=== PATIENT | female | born 1945 | race Caucasian/White ===

== ENCOUNTER 2017-12-13 12:36 | Emergency (ER) | payer MEDICARE, OTHER ==
[~2017-12-13] VITALS: Ht 160 cm; Wt 62.0 kg
[2017-12-13] MEDS ORDERED: dexamethasone sod phosphate 10mg/ml inj IV STA (12:41)
[2017-12-13] MEDS ORDERED: ipratropium/albuterol 3ml nebule NEB ONE (12:45)
[2017-12-13 13:06] LABS: BASOPHILS % (AUTO) 0.2 % (0-1); EOSINOPHILS # (AUTO) 0.2 X10'3 (0-0.9); EOSINOPHILS % (AUTO) 1.7 % (0-6); HEMATOCRIT 36.8 % (35.0-45.0); HEMOGLOBIN 12.6 g/dl (12.0-16.0); LYMPHOCYTES # (AUTO) 4.5 X10'3 (1.1-4.8); LYMPHOCYTES % (AUTO) 51.9 % (21-51); MEAN CORPUSCULAR HEMOGLOBIN 27.6 PG (27.0-31.0); MEAN CORPUSCULAR HGB CONC 34.1 % (33.0-36.5); MEAN CORPUSCULAR VOLUME 80.9 FL (78-98); MEAN PLATELET VOLUME 7.2 FL (7.4-10.4); MONOCYTES # (AUTO) 0.7 X10'3 (0-0.9); MONOCYTES % (AUTO) 7.7 % (2-12); NEUTROPHILS # (AUTO) 3.4 X10'3 (1.8-7.7); NEUTROPHILS % (AUTO) 38.5 % (42-75); PLATELET COUNT 236 X10'3 (140-440); RED BLOOD COUNT 4.55 X10'6 (4.20-5.60); RED CELL DISTRIBUTION WIDTH 16.2 % (11.5-14.5); WHITE BLOOD COUNT 8.7 X10'3 (4.5-11.0)
[2017-12-13 13:15] LABS: PARTIAL THROMBOPLASTIN TIME 26 SECONDS (22-32); PROTHROMBIN TIME 10.6 SECONDS (9.0-12.0)
[2017-12-13] MEDS ORDERED: LORazepam 2 mg/ml vial IV ONE (13:15)
[2017-12-13] MEDS ORDERED: LORazepam 2 mg/ml vial IV PRN (13:20)
[2017-12-13] MEDS ORDERED: LORazepam 2 mg/ml vial ONE (13:26)
[2017-12-13] MEDS ORDERED: LEVO750T21 PO (13:32)
[2017-12-13] MEDS ORDERED: SPIR25TA3 PO (13:32)
[2017-12-13] MEDS ORDERED: GABA-532 PO (13:32)
[2017-12-13] MEDS ORDERED: GEMF600T3 PO (13:32)
[2017-12-13] MEDS ORDERED: LEVO50TA PO (13:32)
[2017-12-13] MEDS ORDERED: ALBU8.5H8 IH (13:32)
[2017-12-13] MEDS ORDERED: CITA20TA11 PO (13:32)
[2017-12-13] MEDS ORDERED: AMLO-93 PO (13:32)
[2017-12-13] MEDS ORDERED: METO1TAB25 OP (13:39)
[2017-12-13] MEDS ORDERED: PRED5TAB PO (13:47)
[2017-12-13] MEDS ORDERED: DOXY100C43 PO (13:47)
[2017-12-13] MEDS ORDERED: ALBU8HFA PO (13:47)
[2017-12-13 13:55] LABS: ALANINE AMINOTRANSFERASE 19 U/L (12-78); ALBUMIN 3.9 G/DL (3.4-5.0); ALBUMIN/GLOBULIN RATIO 0.9 (1.1-1.5); ALKALINE PHOSPHATASE 108 IU/L (46-116); ANION GAP 16 (8-16); ASPARTATE AMINO TRANSFERASE 22 U/L (10-37); BILIRUBIN,TOTAL 0.3 MG/DL (0.1-1.0); BLOOD UREA NITROGEN 33 MG/DL (7-18); BUN/CREATININE RATIO 19.6 (6.6-38.0); CALCIUM 9.6 MG/DL (8.5-10.1); CHLORIDE 102 MMOL/L (99-107); CREATININE 1.68 MG/DL (0.40-0.90); GLUCOSE 83 MG/DL (70-104); POTASSIUM 4.4 MMOL/L (3.5-5.1); SODIUM 137 MMOL/L (135-145); TOTAL PROTEIN 8.3 G/DL (6.4-8.2); eGFR 30 ML/MIN
[2017-12-13 14:14] VITALS: BP 124/87
== END 2017-12-13 14:16 | disposition home or self-care (01) ==
LOC: ER 12:36
DX: R06.03 Acute respiratory distress (principal); E85.9 Amyloidosis, unspecified; J20.9 Acute bronchitis, unspecified; I25.10 Atherosclerotic heart disease of native coronary artery without angina pectoris; E78.00 Pure hypercholesterolemia, unspecified; Z79.899 Other long term (current) drug therapy; Z88.8 Allergy status to other drugs, medicaments and biological substances
CPT/HCPCS: 36415; 71045; 80053; 83605; 83880; 84145; 84484; 85025; 85610; 85730; 87040; 87502; 87503; 93005; 94640; 94760; 96374; 96375; 99291; J1100; J2060

== ENCOUNTER 2017-12-23 09:05 | Emergency (ER) | payer MEDICARE, OTHER ==
[~2017-12-23] VITALS: Ht 160 cm; Wt 60.0 kg
[~2017-12-23 09:05] MED LIST: ALBU8.5H8 IH; ALBU8HFA PO; AMLO-93 PO; CITA20TA11 PO; GABA-532 PO; GEMF600T3 PO; LEVO50TA PO; LEVO750T21 PO; METO1TAB25 OP; PRED5TAB PO; SPIR25TA3 PO
[2017-12-23] MEDS ORDERED: normal saline 1000ML IV soln IV ONE (09:10)
[2017-12-23] MEDS ORDERED: normal saline 1000ML IV soln IVB ONE ×2 (09:30→10:30)
[2017-12-23] MEDS ORDERED: CefTRIAXone 2gm/D5W 50ml 50 ML IV ONE (09:30)
[2017-12-23] MEDS ORDERED: ondansetron/PF 4mg/2ml inj IV ONE (09:35)
[2017-12-23] MEDS ORDERED: morphine 4 MG/ML inj SYRINge IV ONE (09:35)
[2017-12-23 09:59] LABS: BASOPHILS % (AUTO) 0.3 % (0-1); EOSINOPHILS # (AUTO) 0.2 X10'3 (0-0.9); EOSINOPHILS % (AUTO) 1.4 % (0-6); HEMATOCRIT 37.7 % (35.0-45.0); HEMOGLOBIN 12.9 g/dl (12.0-16.0); LYMPHOCYTES # (AUTO) 3.7 X10'3 (1.1-4.8); LYMPHOCYTES % (AUTO) 22.3 % (21-51); MEAN CORPUSCULAR HEMOGLOBIN 27.7 PG (27.0-31.0); MEAN CORPUSCULAR HGB CONC 34.2 % (33.0-36.5); MEAN CORPUSCULAR VOLUME 80.9 FL (78-98); MEAN PLATELET VOLUME 6.7 FL (7.4-10.4); MONOCYTES % (AUTO) 5.8 % (2-12); NEUTROPHILS # (AUTO) 11.5 X10'3 (1.8-7.7); NEUTROPHILS % (AUTO) 70.2 % (42-75); PLATELET COUNT 271 X10'3 (140-440); RED BLOOD COUNT 4.66 X10'6 (4.20-5.60); RED CELL DISTRIBUTION WIDTH 15.7 % (11.5-14.5); WHITE BLOOD COUNT 16.4 X10'3 (4.5-11.0)
[2017-12-23 10:08] LABS: PROTHROMBIN TIME 10.3 SECONDS (9.0-12.0)
[2017-12-23 10:12] LABS: ALANINE AMINOTRANSFERASE 17 U/L (12-78); ALBUMIN 3.8 G/DL (3.4-5.0); ALBUMIN/GLOBULIN RATIO 0.9 (1.1-1.5); ALKALINE PHOSPHATASE 111 IU/L (46-116); ANION GAP 14 (8-16); ASPARTATE AMINO TRANSFERASE 13 U/L (10-37); BILIRUBIN,TOTAL 0.4 MG/DL (0.1-1.0); BLOOD UREA NITROGEN 46 MG/DL (7-18); BUN/CREATININE RATIO 29.5 (6.6-38.0); CHLORIDE 103 MMOL/L (99-107); CREATININE 1.56 MG/DL (0.40-0.90); GLUCOSE 99 MG/DL (70-104); MAGNESIUM 1.9 MG/DL (1.5-2.4); POTASSIUM 4.6 MMOL/L (3.5-5.1); SODIUM 139 MMOL/L (135-145); TOTAL CARBON DIOXIDE 22.3 MMOL/L (24-32); TOTAL PROTEIN 8.1 G/DL (6.4-8.2); eGFR 33 ML/MIN
[2017-12-23 10:33] LABS: CLARITY,URINE CLOUDY (Clear); COLOR,URINE YELLOW (Yellow); GLUCOSE, URINE NEGATIVE (Neg); KETONES,URINE NEGATIVE (Neg); LEUKOCYTE ESTERASE ,URINE LARGE (Neg); NITRITES, URINE POSITIVE (Neg); OCCULT BLOOD,URINE MODERATE (Neg); PH,URINE 5.5 (4.8-8.0); PROTEIN,URINE TRACE mg/dl (Neg); UROBILINOGEN,URINE 0.2 E.U/dL (0.2-1.0)
[2017-12-23 10:40] LABS: UA COLLECTION TYPE CLN CATCH MIDSTREAM
[2017-12-23 10:42] LABS: BACTERIA,URINE 3+ /HPF (Neg); MUCUS STRANDS NONE SEEN /LPF (Neg); RBC,URINE 0-2 /HPF (0-2); SQUAMOUS EPITHELIAL CELL,UR NONE SEEN /LPF (FEW); TRANSITIONAL EPI CELLS,URINE FEW /HPF; WBC,URINE 50-100 /HPF (0-4)
[2017-12-23] MEDS ORDERED: ONDA4TAB12 PO (11:07)
[2017-12-23] MEDS ORDERED: CEPH500C5 PO (11:07)
[2017-12-23 14:48] VITALS: BP 129/76
== END 2017-12-23 14:40 | disposition home or self-care (01) ==
LOC: ER 09:05
DX: N39.0 Urinary tract infection, site not specified (principal); I25.10 Atherosclerotic heart disease of native coronary artery without angina pectoris; E78.00 Pure hypercholesterolemia, unspecified; N18.9 Chronic kidney disease, unspecified; M10.9 Gout, unspecified; Z88.8 Allergy status to other drugs, medicaments and biological substances; Z79.899 Other long term (current) drug therapy
CPT/HCPCS: 36415; 80053; 81001; 83605; 83735; 84145; 85025; 85610; 87040; 87077; 87088; 87186; 96365; 96375; 99284; J0696; J2270; J2405; J7030

== ENCOUNTER 2018-08-05 10:37 | Inpatient (IN) | payer MEDICARE, OTHER ==
[~2018-08-05] VITALS: Ht 160 cm; Wt 65.2 kg
[~2018-08-05 10:37] MED LIST changes: -ALBU8HFA PO; -AMLO-93 PO; +AMLO2.5T2 PO; +CEFU500T66 PO; +CITA-278 PO; -CITA20TA11 PO; +FURO-150 PO; -GEMF600T3 PO; +GEMF600T4 PO; +IPRA3AMP9 NEB; +LACT1CAP26 PO; -LEVO750T21 PO; +METH4TAB81 PO; -METO1TAB25 OP; +OMEP40CA37 PO; -SPIR25TA3 PO
[2018-08-05] MEDS ORDERED: levoFLOXACIN 750MG TABLET PO ONE (11:15)
[2018-08-05] MEDS ORDERED: amox tr/potassium clavulanate 875/125mg TAB PO ONE (11:15)
[2018-08-05 11:19] LABS: BASOPHILS % (AUTO) 0.1 % (0-1); EOSINOPHILS % (AUTO) 0 % (0-6); HEMATOCRIT 37.6 % (35.0-45.0); LYMPHOCYTES # (AUTO) 1.5 X10'3 (1.1-4.8); LYMPHOCYTES % (AUTO) 9.3 % (21-51); MEAN CORPUSCULAR HEMOGLOBIN 24.9 PG (27.0-31.0); MEAN CORPUSCULAR HGB CONC 31.9 % (33.0-36.5); MEAN PLATELET VOLUME 7.1 FL (7.4-10.4); MONOCYTES # (AUTO) 0.4 X10'3 (0-0.9); MONOCYTES % (AUTO) 2.7 % (2-12); NEUTROPHILS # (AUTO) 13.9 X10'3 (1.8-7.7); NEUTROPHILS % (AUTO) 87.9 % (42-75); PLATELET COUNT 334 X10'3 (140-440); RED BLOOD COUNT 4.82 X10'6 (4.20-5.60); RED CELL DISTRIBUTION WIDTH 18.8 % (11.5-14.5); WHITE BLOOD COUNT 15.8 X10'3 (4.5-11.0)
[2018-08-05 11:32] LABS: ALANINE AMINOTRANSFERASE 18 U/L (12-78); ALBUMIN 3.8 G/DL (3.4-5.0); ALBUMIN/GLOBULIN RATIO 0.9 (1.1-1.5); ALKALINE PHOSPHATASE 115 IU/L (46-116); ANION GAP 11 (8-16); ASPARTATE AMINO TRANSFERASE 15 U/L (10-37); BILIRUBIN,TOTAL 0.3 MG/DL (0.1-1.0); BLOOD UREA NITROGEN 30 MG/DL (7-18); BUN/CREATININE RATIO 18.6 (6.6-38.0); CHLORIDE 100 MMOL/L (99-107); CREATININE 1.61 MG/DL (0.40-0.90); GLUCOSE 123 MG/DL (70-104); POTASSIUM 4.4 MMOL/L (3.5-5.1); SODIUM 137 MMOL/L (135-145); TOTAL CARBON DIOXIDE 25.7 MMOL/L (24-32); TOTAL PROTEIN 7.9 G/DL (6.4-8.2); eGFR 32 ML/MIN
[2018-08-05] MEDS ORDERED: piperacillin/tazo 3.375gm/50ml 50 ML IV STA (12:06)
[2018-08-05] MEDS ORDERED: normal saline 1000ML IV soln IVB ONE (12:10)
[2018-08-05] MEDS ORDERED: acetaminophen 325mg tablet PO PRN (13:20)
[2018-08-05] MEDS ORDERED: magnesium Cl slow-release 64mg tablet PO PRN (13:20)
[2018-08-05] MEDS ORDERED: morphine 2 MG/ML inj. syringe IV PRN (13:20)
[2018-08-05] MEDS ORDERED: magnesium 4gm in 100ml NS 100 ML IV PRN (13:20)
[2018-08-05] MEDS ORDERED: HYDROcodone/acetaminophen 5mg/325mg tablet PO PRN (13:20)
[2018-08-05] MEDS ORDERED: potassium Cl 40MEQ/NS 500ml 500 ML IV PRN ×2 (13:20)
[2018-08-05] MEDS ORDERED: ondansetron/PF 4mg/2ml inj IV PRN (13:20)
[2018-08-05] MEDS ORDERED: magnesium 1gm/100ml D5W IVPB 100 ML IV PRN (13:20)
[2018-08-05] MEDS ORDERED: potassium Cl 20 mEq SR tablet PO PRN ×2 (13:20)
[2018-08-05] MEDS: normal saline 1000ml 1,000 ML IV SCH (13:53)
[2018-08-05 17:52] VITALS: BP 127/43
[2018-08-05 18:00] VITALS: BP 124/50
[2018-08-05] MEDS: acetaminophen 325mg tablet PO PRN (19:23)
[2018-08-05] MEDS: heparin, porcine 5000 units/ml vial SQ SCH (19:24)
[2018-08-05] MEDS ORDERED: DILT120C51 PO (20:32)
[2018-08-05] MEDS ORDERED: EPLE25TA4 PO (20:32)
[2018-08-05] MEDS ORDERED: temazepam 15mg capsule PO PRN (21:00)
[2018-08-05 23:30] VITALS: BP 132/52
[2018-08-06] MEDS: normal saline 1000ml 1,000 ML IV SCH ×2 (01:37→16:26)
[2018-08-06 05:15] LABS: BASOPHILS % (AUTO) 0.1 % (0-1); EOSINOPHILS # (AUTO) 0.3 X10'3 (0-0.9); EOSINOPHILS % (AUTO) 2.9 % (0-6); HEMOGLOBIN 10.8 g/dl (12.0-16.0); LYMPHOCYTES # (AUTO) 1.9 X10'3 (1.1-4.8); MEAN CORPUSCULAR HGB CONC 31.7 % (33.0-36.5); MEAN PLATELET VOLUME 7.4 FL (7.4-10.4); MONOCYTES # (AUTO) 0.5 X10'3 (0-0.9); MONOCYTES % (AUTO) 5.1 % (2-12); NEUTROPHILS # (AUTO) 7.2 X10'3 (1.8-7.7); NEUTROPHILS % (AUTO) 72.9 % (42-75); PLATELET COUNT 292 X10'3 (140-440); RED BLOOD COUNT 4.31 X10'6 (4.20-5.60); RED CELL DISTRIBUTION WIDTH 18.1 % (11.5-14.5); WHITE BLOOD COUNT 9.9 X10'3 (4.5-11.0)
[2018-08-06 06:25] LABS: ALANINE AMINOTRANSFERASE 18 U/L (12-78); ALBUMIN 3.2 G/DL (3.4-5.0); ALBUMIN/GLOBULIN RATIO 0.8 (1.1-1.5); ALKALINE PHOSPHATASE 96 IU/L (46-116); ANION GAP 12 (8-16); ASPARTATE AMINO TRANSFERASE 14 U/L (10-37); BILIRUBIN,TOTAL 0.2 MG/DL (0.1-1.0); BLOOD UREA NITROGEN 28 MG/DL (7-18); BUN/CREATININE RATIO 17.8 (6.6-38.0); CALCIUM 9.5 MG/DL (8.5-10.1); CHLORIDE 108 MMOL/L (99-107); CREATININE 1.57 MG/DL (0.40-0.90); GLUCOSE 101 MG/DL (70-104); MAGNESIUM 1.9 MG/DL (1.5-2.4); POTASSIUM 4.3 MMOL/L (3.5-5.1); SODIUM 145 MMOL/L (135-145); TOTAL CARBON DIOXIDE 25.5 MMOL/L (24-32); eGFR 32 ML/MIN
[2018-08-06 07:00] VITALS: BP 152/56
[2018-08-06] MEDS: heparin, porcine 5000 units/ml vial SQ SCH ×2 (08:00→19:39)
[2018-08-06] MEDS: K and/or MAG REPLACEMENT MC SCH (08:00)
[2018-08-06] MEDS: CefTRIAXone 2gm/D5W 50ml 50 ML IV SCH (08:20)
[2018-08-06] MEDS: pantoprazole 40mg Tablet.DR PO SCH (08:20)
[2018-08-06] MEDS ORDERED: levoFLOXACIN-Levaquin 500mg/D5 100 ML IV SCH (08:30)
[2018-08-06] MEDS: levoTHYROXINE 25mcg tablet PO SCH (12:00)
[2018-08-06] MEDS: CITALOpram 10mg tablet PO SCH (12:00)
[2018-08-06] MEDS: diltiazem CD 120mg capsule (once-daily) PO SCH (12:00)
[2018-08-06 19:00] VITALS: BP 145/60
[2018-08-06] MEDS: gemfibrozil 600mg tablet PO SCH (19:38)
[2018-08-06] MEDS: gabapentin 300mg capsule PO SCH (19:38)
[2018-08-07] VITALS: BP 136/73
[2018-08-07] MEDS: acetaminophen 325mg tablet PO PRN (03:50)
[2018-08-07] MEDS: normal saline 1000ml 1,000 ML IV SCH (05:53)
[2018-08-07 06:20] LABS: BASOPHILS % (AUTO) 0.4 % (0-1); EOSINOPHILS # (AUTO) 0.2 X10'3 (0-0.9); EOSINOPHILS % (AUTO) 3.8 % (0-6); HEMATOCRIT 30.4 % (35.0-45.0); HEMOGLOBIN 9.9 g/dl (12.0-16.0); LYMPHOCYTES # (AUTO) 1.7 X10'3 (1.1-4.8); LYMPHOCYTES % (AUTO) 27.8 % (21-51); MEAN CORPUSCULAR HEMOGLOBIN 25.5 PG (27.0-31.0); MEAN CORPUSCULAR HGB CONC 32.6 % (33.0-36.5); MEAN CORPUSCULAR VOLUME 78.5 FL (78-98); MEAN PLATELET VOLUME 7.2 FL (7.4-10.4); MONOCYTES # (AUTO) 0.4 X10'3 (0-0.9); MONOCYTES % (AUTO) 6.7 % (2-12); NEUTROPHILS # (AUTO) 3.7 X10'3 (1.8-7.7); NEUTROPHILS % (AUTO) 61.3 % (42-75); PLATELET COUNT 249 X10'3 (140-440); RED BLOOD COUNT 3.87 X10'6 (4.20-5.60); RED CELL DISTRIBUTION WIDTH 18.8 % (11.5-14.5); WHITE BLOOD COUNT 6.1 X10'3 (4.5-11.0)
[2018-08-07 06:40] LABS: ALANINE AMINOTRANSFERASE 16 U/L (12-78); ALBUMIN/GLOBULIN RATIO 0.9 (1.1-1.5); ALKALINE PHOSPHATASE 74 IU/L (46-116); ANION GAP 11 (8-16); ASPARTATE AMINO TRANSFERASE 12 U/L (10-37); BILIRUBIN,TOTAL 0.2 MG/DL (0.1-1.0); BLOOD UREA NITROGEN 23 MG/DL (7-18); BUN/CREATININE RATIO 15.1 (6.6-38.0); CALCIUM 9.4 MG/DL (8.5-10.1); CHLORIDE 109 MMOL/L (99-107); CREATININE 1.52 MG/DL (0.40-0.90); GLUCOSE 101 MG/DL (70-104); MAGNESIUM 1.8 MG/DL (1.5-2.4); POTASSIUM 4.1 MMOL/L (3.5-5.1); SODIUM 144 MMOL/L (135-145); TOTAL CARBON DIOXIDE 24.4 MMOL/L (24-32); TOTAL PROTEIN 6.5 G/DL (6.4-8.2); eGFR 34 ML/MIN
[2018-08-07 07:51] VITALS: BP 129/63
[2018-08-07] MEDS: K and/or MAG REPLACEMENT MC SCH (08:00)
[2018-08-07] MEDS ORDERED: furosemide 20MG tablet PO SCH (08:00)
[2018-08-07] MEDS: pantoprazole 40mg Tablet.DR PO SCH (09:03)
[2018-08-07] MEDS: levoTHYROXINE 25mcg tablet PO SCH (09:04)
[2018-08-07] MEDS: diltiazem CD 120mg capsule (once-daily) PO SCH (09:04)
[2018-08-07] MEDS: gabapentin 300mg capsule PO SCH (09:05)
[2018-08-07] MEDS: CefTRIAXone 2gm/D5W 50ml 50 ML IV SCH (09:07)
[2018-08-07] MEDS: heparin, porcine 5000 units/ml vial SQ SCH (09:07)
[2018-08-07] MEDS: CITALOpram 10mg tablet PO SCH (09:33)
[2018-08-07] MEDS: gemfibrozil 600mg tablet PO SCH (09:33)
[2018-08-07] MEDS ORDERED: ESOM40CA30 PO (12:05)
[2018-08-07] MEDS ORDERED: LEVO500T89 PO (12:05)
[2018-08-07 12:35] VITALS: BP 138/73
[2018-08-07] MEDS ORDERED: lactobacillus rhamnosus 10,000 MMU CELLS/CAPSULE PO SCH (20:00)
== END 2018-08-07 14:30 | disposition home or self-care (01) | DRG 178 ==
LOC: ER 10:38 → ED HOLD 13:16 → SUR 3N 17:25
PROVIDERS: ADMIT Internal Medicine; ATTEND Family Medicine
DX: J69.0 Pneumonitis due to inhalation of food and vomit (principal); I50.30 Unspecified diastolic (congestive) heart failure; E85.9 Amyloidosis, unspecified; K21.9 Gastro-esophageal reflux disease without esophagitis; N18.3 Chronic kidney disease, stage 3 (moderate); D64.9 Anemia, unspecified; E03.9 Hypothyroidism, unspecified; E78.00 Pure hypercholesterolemia, unspecified; I25.10 Atherosclerotic heart disease of native coronary artery without angina pectoris; K44.9 Diaphragmatic hernia without obstruction or gangrene; F32.9 Major depressive disorder, single episode, unspecified; F41.9 Anxiety disorder, unspecified; M10.9 Gout, unspecified; R91.1 Solitary pulmonary nodule; M54.2 Cervicalgia; M54.9 Dorsalgia, unspecified; Z79.890 Hormone replacement therapy; Z90.5 Acquired absence of kidney; Z79.899 Other long term (current) drug therapy; Z88.8 Allergy status to other drugs, medicaments and biological substances; Z91.041 Radiographic dye allergy status; Z85.528 Personal history of other malignant neoplasm of kidney; Z85.858 Personal history of malignant neoplasm of other endocrine glands
CPT/HCPCS: 36415; 71046; 80053; 83605; 83735; 84145; 85025; 87040; 87070; G0378; J0696; J1644; J1956; J2405; J2543; J7030

== ENCOUNTER 2019-03-25 22:31 | Emergency (ER) | payer MEDICARE, OTHER ==
[~2019-03-25] VITALS: Ht 160 cm; Wt 62.0 kg
[~2019-03-25 22:31] MED LIST changes: +ACET-75 PO; -AMLO2.5T2 PO; -CEFU500T66 PO; -CITA-278 PO; +CITA-311 PO; +DILT120C51 PO; +EPLE25TA4 PO; -GEMF600T4 PO; +GEMF600T89 PO; -IPRA3AMP9 NEB; -LACT1CAP26 PO; -METH4TAB81 PO; -OMEP40CA37 PO; -PRED5TAB PO
[2019-03-25 23:09] LABS: BASOPHILS % (AUTO) 0.4 % (0-1); EOSINOPHILS # (AUTO) 0.2 X10'3 (0-0.9); EOSINOPHILS % (AUTO) 1.7 % (0-6); HEMATOCRIT 36.7 % (35.0-45.0); HEMOGLOBIN 12.3 g/dl (12.0-16.0); LYMPHOCYTES # (AUTO) 4.1 X10'3 (1.1-4.8); LYMPHOCYTES % (AUTO) 40.6 % (21-51); MEAN CORPUSCULAR HEMOGLOBIN 28.8 PG (27.0-31.0); MEAN CORPUSCULAR HGB CONC 33.5 g/dL (33.0-36.5); MEAN CORPUSCULAR VOLUME 85.8 FL (78-98); MEAN PLATELET VOLUME 7.5 FL (7.4-10.4); MONOCYTES # (AUTO) 0.7 X10'3 (0-0.9); MONOCYTES % (AUTO) 7.2 % (2-12); NEUTROPHILS # (AUTO) 5.1 X10'3 (1.8-7.7); NEUTROPHILS % (AUTO) 50.1 % (42-75); PLATELET COUNT 258 X10'3 (140-440); RED BLOOD COUNT 4.28 X10'6 (4.20-5.60); RED CELL DISTRIBUTION WIDTH 15.2 % (11.5-14.5); WHITE BLOOD COUNT 10.1 X10'3 (4.5-11.0)
[2019-03-25 23:18] LABS: ALANINE AMINOTRANSFERASE 20 U/L (12-78); ALBUMIN 3.9 G/DL (3.4-5.0); ALBUMIN/GLOBULIN RATIO 1.1 (1.1-1.5); ALKALINE PHOSPHATASE 102 IU/L (46-116); ANION GAP 10 (8-16); ASPARTATE AMINO TRANSFERASE 9 U/L (10-37); BILIRUBIN,TOTAL 0.3 MG/DL (0.1-1.0); BLOOD UREA NITROGEN 43 MG/DL (7-18); BUN/CREATININE RATIO 26.1 (6.6-38.0); CALCIUM 9.6 MG/DL (8.5-10.1); CHLORIDE 102 MMOL/L (99-107); CREATININE 1.65 MG/DL (0.40-0.90); GLUCOSE 104 MG/DL (70-104); POTASSIUM 4.4 MMOL/L (3.5-5.1); SODIUM 137 MMOL/L (135-145); TOTAL PROTEIN 7.4 G/DL (6.4-8.2); eGFR 31 ML/MIN
[2019-03-25] MEDS ORDERED: nitroGLYCERIN 0.4mg SUBLingual tab SL PRN (23:20)
[2019-03-26 00:27] LABS: CHOL/HDL RATIO 5.6 (0.00-4.99); CHOLESTEROL 211 MG/DL (0-200); HDL CHOLESTEROL 38 MG/DL (35-60); LDL CHOLESTEROL 128 MG/DL (50-100); TRIGLYCERIDES 274 MG/DL (20-135)
[2019-03-26 02:22] VITALS: BP 133/60
== END 2019-03-26 02:32 | disposition home or self-care (01) ==
LOC: ER 22:32
DX: E85.9 Amyloidosis, unspecified (principal); R07.89 Other chest pain; I12.9 Hypertensive chronic kidney disease with stage 1 through stage 4 chronic kidney disease, or unspecified chronic kidney disease; N18.9 Chronic kidney disease, unspecified; E78.5 Hyperlipidemia, unspecified; K80.20 Calculus of gallbladder without cholecystitis without obstruction; I25.10 Atherosclerotic heart disease of native coronary artery without angina pectoris; E78.00 Pure hypercholesterolemia, unspecified; K21.9 Gastro-esophageal reflux disease without esophagitis; E07.9 Disorder of thyroid, unspecified; M10.9 Gout, unspecified; F41.9 Anxiety disorder, unspecified; F32.9 Major depressive disorder, single episode, unspecified; Z98.890 Other specified postprocedural states; Z88.8 Allergy status to other drugs, medicaments and biological substances; Z79.899 Other long term (current) drug therapy
CPT/HCPCS: 36415; 71045; 80053; 80061; 84484; 85025; 93005; 99284

== ENCOUNTER 2019-05-15 17:36 | Emergency (ER) | payer MEDICARE, OTHER ==
[~2019-05-15] VITALS: Ht 160 cm; Wt 63.6 kg
[~2019-05-15 17:36] MED LIST changes: -GEMF600T89 PO
[2019-05-15 17:39] VITALS: BP 143/87
[2019-05-15] MEDS ORDERED: HYDROcodone/acetaminophen 5mg/325mg tablet PO ONE (18:10)
[2019-05-15] MEDS ORDERED: ondansetron 4mg rapidly disintigrating tab PO ONE (18:10)
[2019-05-15] MEDS ORDERED: HYDR-4383 PO (18:14)
== END 2019-05-15 18:30 | disposition home or self-care (01) ==
LOC: ER 17:36
DX: M25.561 Pain in right knee (principal); I25.10 Atherosclerotic heart disease of native coronary artery without angina pectoris; E78.00 Pure hypercholesterolemia, unspecified; K21.9 Gastro-esophageal reflux disease without esophagitis; N18.9 Chronic kidney disease, unspecified; E07.9 Disorder of thyroid, unspecified; M10.9 Gout, unspecified; F41.9 Anxiety disorder, unspecified; F32.9 Major depressive disorder, single episode, unspecified; Z88.8 Allergy status to other drugs, medicaments and biological substances; Z79.899 Other long term (current) drug therapy; Z98.890 Other specified postprocedural states
CPT/HCPCS: 29505; 73564; 99283; J2405

== ENCOUNTER 2019-10-18 15:50 | Emergency (ER) | payer MEDICARE, OTHER ==
[~2019-10-18] VITALS: Ht 160 cm; Wt 65.0 kg
[~2019-10-18 15:50] MED LIST changes: +HYDR-4383 PO
[2019-10-18] MEDS ORDERED: ipratropium/albuterol 3ml nebule NEB ONE (18:45)
[2019-10-18 19:06] LABS: BASOPHILS % (AUTO) 0.3 % (0-1); EOSINOPHILS # (AUTO) 0.2 X10'3 (0-0.9); HEMATOCRIT 38.6 % (35.0-45.0); HEMOGLOBIN 12.9 g/dl (12.0-16.0); LYMPHOCYTES # (AUTO) 2.5 X10'3 (1.1-4.8); MEAN CORPUSCULAR HGB CONC 33.4 g/dL (33.0-36.5); MONOCYTES # (AUTO) 0.7 X10'3 (0-0.9); MONOCYTES % (AUTO) 7.8 % (2-12); NEUTROPHILS # (AUTO) 5.9 X10'3 (1.8-7.7); NEUTROPHILS % (AUTO) 62.9 % (42-75); PLATELET COUNT 258 X10'3 (140-440); RED CELL DISTRIBUTION WIDTH 15.2 % (11.5-14.5); WHITE BLOOD COUNT 9.4 X10'3 (4.5-11.0)
[2019-10-18 19:20] LABS: ALANINE AMINOTRANSFERASE 26 U/L (12-78); ALBUMIN 4.2 G/DL (3.4-5.0); ALBUMIN/GLOBULIN RATIO 1.1 (1.1-1.5); ALKALINE PHOSPHATASE 89 IU/L (46-116); ANION GAP 11 (8-16); ASPARTATE AMINO TRANSFERASE 21 U/L (10-37); BILIRUBIN,TOTAL 0.3 MG/DL (0.1-1.0); BLOOD UREA NITROGEN 28 MG/DL (7-18); BUN/CREATININE RATIO 16.9 (6.6-38.0); CALCIUM 9.8 MG/DL (8.5-10.1); CHLORIDE 104 MMOL/L (99-107); CREATININE 1.66 MG/DL (0.40-0.90); GLUCOSE 117 MG/DL (70-104); POTASSIUM 4.8 MMOL/L (3.5-5.1); SODIUM 141 MMOL/L (135-145); TOTAL CARBON DIOXIDE 26.1 MMOL/L (24-32); TOTAL PROTEIN 7.9 G/DL (6.4-8.2); eGFR 30 ML/MIN
[2019-10-18] MEDS ORDERED: DOXYCYCLINE 100MG CAPSULE PO STA (20:22)
[2019-10-18] MEDS ORDERED: PRED20TA PO (20:22)
[2019-10-18] MEDS ORDERED: DOXY100C43 PO (20:22)
[2019-10-18] MEDS ORDERED: methylPREDNISolone sod succ 125mg/2ml vial IV ONE (20:25)
[2019-10-18 20:36] VITALS: BP 131/71
== END 2019-10-18 20:36 | disposition home or self-care (01) ==
LOC: ER 15:51
DX: J20.9 Acute bronchitis, unspecified (principal); I25.10 Atherosclerotic heart disease of native coronary artery without angina pectoris; E78.00 Pure hypercholesterolemia, unspecified; K21.9 Gastro-esophageal reflux disease without esophagitis; N18.9 Chronic kidney disease, unspecified; F41.9 Anxiety disorder, unspecified; F32.9 Major depressive disorder, single episode, unspecified; Z87.891 Personal history of nicotine dependence; Z88.6 Allergy status to analgesic agent; Z88.8 Allergy status to other drugs, medicaments and biological substances; Z79.899 Other long term (current) drug therapy
CPT/HCPCS: 36415; 71045; 80053; 85025; 85610; 87502; 87503; 93005; 94640; 96374; 99284; J2930; 94760

== ENCOUNTER 2019-11-02 12:21 | Observation (INO) | payer MEDICARE, OTHER ==
[2019-11-02] VITALS (9 sets, daily range): BP systolic 92–135; BP diastolic 44–70
[~2019-11-02] VITALS: Ht 160 cm; Wt 63.2 kg
[~2019-11-02 12:21] MED LIST changes: +ASPI-611 PO; +ATOR40TA PO; +CLOP75TA33 PO; +EZET10TA48 PO; +LISI2.5T2 PO; +OXAZ10CA3 PO; +PRED20TA PO
[2019-11-02] MEDS ORDERED: normal saline 1,000 ML IV SCH (13:00)
[2019-11-02] MEDS ORDERED: diphenhydrAMINE 25mg capsule PO PRN (13:00)
[2019-11-02] MEDS ORDERED: CLOP75TA15 PO (13:24)
[2019-11-02] MEDS ORDERED: ATOR40TA PO (13:24)
[2019-11-02] MEDS ORDERED: LISI-604 PO (13:24)
[2019-11-02] MEDS ORDERED: NITR0.4T51 SL (13:24)
[2019-11-02] MEDS ORDERED: CARV-50 PO (13:24)
[2019-11-02] MEDS ORDERED: OXAZ10CA3 PO (13:24)
[2019-11-02] MEDS ORDERED: LENA5CAP PO (13:24)
[2019-11-02] MEDS ORDERED: DEXA4TAB PO (13:24)
[2019-11-02 14:00] LABS: BASOPHILS % (AUTO) 0.1 % (0-1); EOSINOPHILS # (AUTO) 0.1 X10'3 (0-0.9); EOSINOPHILS % (AUTO) 0.8 % (0-6); HEMATOCRIT 32.7 % (35.0-45.0); HEMOGLOBIN 11.1 g/dl (12.0-16.0); LYMPHOCYTES # (AUTO) 3.2 X10'3 (1.1-4.8); MEAN CORPUSCULAR HEMOGLOBIN 28.2 PG (27.0-31.0); MEAN CORPUSCULAR HGB CONC 33.9 g/dL (33.0-36.5); MEAN CORPUSCULAR VOLUME 83.1 FL (78-98); MEAN PLATELET VOLUME 7.9 FL (7.4-10.4); MONOCYTES # (AUTO) 1.1 X10'3 (0-0.9); MONOCYTES % (AUTO) 5.9 % (2-12); NEUTROPHILS # (AUTO) 13.5 X10'3 (1.8-7.7); NEUTROPHILS % (AUTO) 75.2 % (42-75); PLATELET COUNT 249 X10'3 (140-440); RED BLOOD COUNT 3.94 X10'6 (4.20-5.60); RED CELL DISTRIBUTION WIDTH 15.5 % (11.5-14.5); WHITE BLOOD COUNT 17.9 X10'3 (4.5-11.0)
[2019-11-02 14:10] LABS: ALBUMIN 3.4 G/DL (3.4-5.0); ANION GAP 8 (8-16); BLOOD UREA NITROGEN 39 MG/DL (7-18); BUN/CREATININE RATIO 26.4 (6.6-38.0); CALCIUM 9.5 MG/DL (8.5-10.1); CHLORIDE 106 MMOL/L (99-107); CREATININE 1.48 MG/DL (0.40-0.90); GLUCOSE 101 MG/DL (70-104); POTASSIUM 4.3 MMOL/L (3.5-5.1); SODIUM 142 MMOL/L (135-145); TOTAL CARBON DIOXIDE 27.9 MMOL/L (24-32); eGFR 35 ML/MIN
[2019-11-02] MEDS ORDERED: methylPREDNISolone sod succ 125mg/2ml vial IV ONE (14:45)
--- NOTE | 2019-11-02 16:37 | NUR ---
pt to dental laboratory manager. to acce rm 310 after
[2019-11-02] MEDS ORDERED: fentaNYL/PF 50MCG/1 ML 2ML syringe ONE (16:43)
[2019-11-02] MEDS ORDERED: LIDOcaine 1% (10mg/ml)w/preservative injection 20ml MDV ONE (16:43)
[2019-11-02] MEDS ORDERED: verapamil 2.5 mg/ml inj IV ONE (16:43)
[2019-11-02] MEDS ORDERED: nitroGLYCERIN-Tridil 50MG/D5W 250 ML IV ONE (16:43)
[2019-11-02] MEDS ORDERED: midazolam 2 mg/2 ml injection ONE ×3 (16:43→17:02)
[2019-11-02] MEDS ORDERED: heparin 1,000unit/ml 10ml vial 10 ML ONE (16:43)
[2019-11-02] MEDS ORDERED: iohexol 350MG/ML 100ml bottle IV ONE (16:44)
[2019-11-02] MEDS ORDERED: iohexol 350 MG/ML 50ML vial IV ONE (16:48)
--- NOTE | 2019-11-02 17:47 | NUR ---
1735 Received report from Gumaro RN, assumed care of patient. 1747 Patient arrived on unit at this time. Vital signs stable, no s/sx of distress. No hematoma present. Vascular band in place.
[2019-11-02] MEDS ORDERED: HYDROcodone/acetaminophen 10/325mg tab PO PRN (17:50)
[2019-11-02] MEDS ORDERED: proCHLORperazine 10 MG/2 ml inj IV PRN (17:50)
[2019-11-02] MEDS ORDERED: HYDROcodone/acetaminophen 5mg/325mg tablet PO PRN (17:50)
[2019-11-02] MEDS ORDERED: ondansetron/PF 4mg/2ml inj IV PRN (17:50)
[2019-11-02] MEDS ORDERED: nitroGLYCERIN 0.4mg SUBLingual tab SL PRN (17:55)
[2019-11-02] MEDS ORDERED: OXAZ15CA3 PO (17:55)
--- NOTE | 2019-11-02 18:00 | NUR ---
Problems reprioritized. Patient report given, questions answered & plan of care reviewed with JOEL Peterson.
[2019-11-02] MEDS ORDERED: albuterol 2.5 MG/3 ML nebule NEB PRN (18:05)
--- NOTE | 2019-11-02 18:10 | NUR ---
received report from JOEL Krause
[2019-11-02] MEDS: carVEDilol 12.5mg tablet PO SCH (20:00)
[2019-11-02] MEDS ORDERED: gabapentin 300mg capsule PO SCH (21:00)
[2019-11-02] MEDS: OXAZEpam 15mg capsule PO SCH (21:12)
[2019-11-02 23:24] LABS: HIV ANTIBODY 1&2 RAPID NON-REACTIVE (Neg)
[2019-11-03 01:45] VITALS: BP 94/55
[2019-11-03 06:00] VITALS: BP 99/54
--- NOTE | 2019-11-03 06:15 | NUR ---
Patient in room MED 310. I have received report from JOEL Peterson and had the opportunity to ask questions and assume patient care.
--- NOTE | 2019-11-03 06:40 | NUR ---
gave report to JOEL Krause
[2019-11-03] MEDS: carVEDilol 12.5mg tablet PO SCH (07:20)
[2019-11-03] MEDS: OXAZEpam 15mg capsule PO SCH (07:21)
[2019-11-03] MEDS ORDERED: lisinopril 5mg tablet PO SCH (08:00)
[2019-11-03] MEDS ORDERED: levoTHYROXINE 25mcg tablet PO SCH (08:00)
[2019-11-03] MEDS ORDERED: furosemide 20MG tablet PO SCH (08:00)
[2019-11-03] MEDS ORDERED: LENALIDOMIDE PO SCH (08:00)
[2019-11-03] MEDS ORDERED: clopidogrel 75mg tablet PO SCH (08:00)
[2019-11-03] MEDS ORDERED: atorvastatin 20mg tablet PO SCH (08:00)
[2019-11-03] MEDS ORDERED: CITALOpram 10mg tablet PO SCH (08:00)
[2019-11-03] MEDS ORDERED: ezetimibe 10mg tablet PO SCH (08:00)
--- NOTE | 2019-11-03 09:05 | NUR ---
Patient stable for discharge per MD orders. All discharge instructions reviewed and questions answered. PIV discontinued, cannula intact, clean dry dressing in place. Radial site dressing clean, dry intact, no hematoma. revenue enforcement collection agent removed. All personal belongings collected and sent with patient. Patient ambulated to lobby with spouse and hospital personnel, to be transported home by spouse at 0905.
[2019-11-04 13:13] LABS: HBSAG SCREEN Negative (Negative); HEPATITIS C ANTIBODY <0.1 s/co ratio (0.0-0.9)
--- NOTE | 2019-11-05 14:31 | NUR ---
Case management DC follow up: spoke w/pt via telephone: reports, " I'm a little tired, but doing very well", "Care was exemplary.please make sure nurses on the 3rd floor know this", "Super good care from everyone, very impressed". Denies cp, emergent pain, leg pain/swelling, SOB, resp distress, NV, dizziness, abd pain, ALBRECHT. remains afebrile. Notes the R groin insert site feels like a hard ball, no bothersome, denies s/s infection, redness, swelling, drainage, odor. agrees to watch for any changes. verbalizes understanding of s/s that would warrant 9-11/ER visit for evaluation. verbalizes understanding of meds, why prescribed, taking as ordered, no ase noted r/t new Rx. acknowledges need for follow up appts w/escort service attendant. PCP/Toan Casillas/[facility]. needs met, questions answered at DC, no further questions at this time.
== END 2019-11-03 09:05 | disposition home or self-care (01) ==
LOC: SSTAY O 12:21 → MED 3N 17:38
PROVIDERS: ADMIT Internal Medicine Cardiovascular Disease; ATTEND Internal Medicine Cardiovascular Disease
DX: I21.9 Acute myocardial infarction, unspecified (principal); G47.30 Sleep apnea, unspecified; Z95.5 Presence of coronary angioplasty implant and graft; Z99.89 Dependence on other enabling machines and devices
CPT/HCPCS: 36415; 80048; 83735; 85025; 85610; 86703; 86706; 86803; 87081; 87340; 93458; 96374; C1769; C1894; G0378; J1644; J2001; J2250; J2930; J3010; J7030; Q0163; Q9967; 99152; 99153; A4620; A6258; J3490

== ENCOUNTER 2020-05-22 18:09 | Observation (INO) | payer MEDICARE, OTHER ==
[~2020-05-22] VITALS: Ht 160 cm; Wt 64.5 kg
[~2020-05-22 18:09] MED LIST changes: -ACET-75 PO; +ASPI-1265 PO; -ASPI-611 PO; +CARV-50 PO; +CLOP75TA15 PO; -CLOP75TA33 PO; +DEXA4TAB PO; -DILT120C51 PO; -FURO-150 PO; -HYDR-4383 PO; +LENA5CAP PO; +LISI-604 PO; -LISI2.5T2 PO; +NITR0.4T51 SL; -OXAZ10CA3 PO; +OXAZ15CA3 PO; -PRED20TA PO
[2020-05-22 18:36] LABS: BASOPHILS % (AUTO) 0.4 % (0-1); EOSINOPHILS % (AUTO) 0.7 % (0-6); HEMATOCRIT 32.1 % (35.0-45.0); HEMOGLOBIN 10.5 g/dl (12.0-16.0); LYMPHOCYTES # (AUTO) 2.5 X10'3 (1.1-4.8); LYMPHOCYTES % (AUTO) 33.3 % (21-51); MEAN CORPUSCULAR HEMOGLOBIN 27.7 PG (27.0-31.0); MEAN CORPUSCULAR HGB CONC 32.7 g/dL (33.0-36.5); MEAN CORPUSCULAR VOLUME 84.7 FL (78-98); MONOCYTES # (AUTO) 0.6 X10'3 (0-0.9); MONOCYTES % (AUTO) 8.2 % (2-12); NEUTROPHILS # (AUTO) 4.4 X10'3 (1.8-7.7); NEUTROPHILS % (AUTO) 57.4 % (42-75); PLATELET COUNT 240 X10'3 (140-440); RED BLOOD COUNT 3.79 X10'6 (4.20-5.60); RED CELL DISTRIBUTION WIDTH 21.6 % (11.5-14.5); WHITE BLOOD COUNT 7.6 X10'3 (4.5-11.0)
[2020-05-22 18:53] LABS: ALANINE AMINOTRANSFERASE 25 U/L (12-78); ALBUMIN 3.5 G/DL (3.4-5.0); ALBUMIN/GLOBULIN RATIO 1.1 (1.1-1.5); ALKALINE PHOSPHATASE 67 IU/L (46-116); ANION GAP 13 (8-16); ASPARTATE AMINO TRANSFERASE 18 U/L (10-37); BILIRUBIN,TOTAL 0.4 MG/DL (0.1-1.0); BLOOD UREA NITROGEN 36 MG/DL (7-18); BUN/CREATININE RATIO 17.1 (6.6-38.0); CALCIUM 9.1 MG/DL (8.5-10.1); CHLORIDE 104 MMOL/L (99-107); GLUCOSE 99 MG/DL (70-104); POTASSIUM 4.8 MMOL/L (3.5-5.1); SODIUM 137 MMOL/L (135-145); TOTAL CARBON DIOXIDE 20.2 MMOL/L (24-32); TOTAL PROTEIN 6.6 G/DL (6.4-8.2); eGFR 23 ML/MIN
[2020-05-22] MEDS ORDERED: ALBU8.5H8 INH (20:00)
[2020-05-22] MEDS ORDERED: GABA300C PO (20:00)
[2020-05-22] MEDS ORDERED: acetaminophen 325mg tablet PO PRN (20:05)
[2020-05-22] MEDS ORDERED: magnesium Cl slow-release 64mg tablet PO PRN (20:05)
[2020-05-22] MEDS ORDERED: ondansetron/PF 4mg/2ml inj IV PRN (20:05)
[2020-05-22] MEDS ORDERED: magnesium 4gm in 100ml NS 100 ML IV PRN (20:05)
[2020-05-22] MEDS ORDERED: magnesium 2GM in 50ml NS 50 ML IV PRN (20:05)
[2020-05-22] MEDS ORDERED: HYDROcodone/acetaminophen 10/325mg tab PO PRN (20:05)
[2020-05-22] MEDS ORDERED: morphine 2 MG/ML inj. syringe IV PRN (20:05)
[2020-05-22] MEDS ORDERED: potassium Cl 20 mEq SR tablet PO PRN ×2 (20:05)
[2020-05-22] MEDS ORDERED: potassium CL 10mEq/100ml bag 100 ML IV PRN ×2 (20:05)
--- NOTE | 2020-05-22 20:12 | NUR ---
TALKED WITH PT MICHELLE WITH PT PERSMISSION OF PLAN OF CARE FOR PT AND ADMITTANCE TO HOSPITAL. ALL QUESTIONS ANSWERED. PHONE PLACED IN PT ROOM FOR PT TOT ALK WITH NEEDED
[2020-05-22] MEDS ORDERED: ENTE0.5T4 PO (20:23)
[2020-05-22] MEDS ORDERED: temazepam 15mg capsule PO PRN (21:00)
--- NOTE | 2020-05-22 21:45 | NUR ---
NIKHIL MARI RECEIVED PT REPORT FROM DALIA MALDONADO IN ER AND TOOK OVER CARE OF PT WITH ME OVERSEEING HER.
[2020-05-22 22:00] VITALS: BP 140/60
[2020-05-23 01:28] LABS: BASOPHILS % (AUTO) 0.2 % (0-1); EOSINOPHILS # (AUTO) 0.1 X10'3 (0-0.9); EOSINOPHILS % (AUTO) 1.2 % (0-6); HEMATOCRIT 32.6 % (35.0-45.0); HEMOGLOBIN 10.7 g/dl (12.0-16.0); LYMPHOCYTES # (AUTO) 1.8 X10'3 (1.1-4.8); LYMPHOCYTES % (AUTO) 36.8 % (21-51); MEAN CORPUSCULAR HEMOGLOBIN 28.5 PG (27.0-31.0); MEAN CORPUSCULAR HGB CONC 32.9 g/dL (33.0-36.5); MEAN CORPUSCULAR VOLUME 86.5 FL (78-98); MONOCYTES # (AUTO) 0.5 X10'3 (0-0.9); MONOCYTES % (AUTO) 9.3 % (2-12); NEUTROPHILS # (AUTO) 2.6 X10'3 (1.8-7.7); NEUTROPHILS % (AUTO) 52.5 % (42-75); PLATELET COUNT 226 X10'3 (140-440); RED BLOOD COUNT 3.77 X10'6 (4.20-5.60); RED CELL DISTRIBUTION WIDTH 21.7 % (11.5-14.5)
[2020-05-23 01:45] LABS: ALBUMIN 3.4 G/DL (3.4-5.0); ANION GAP 10 (8-16); BLOOD UREA NITROGEN 37 MG/DL (7-18); BUN/CREATININE RATIO 17.7 (6.6-38.0); CALCIUM 9.2 MG/DL (8.5-10.1); CHLORIDE 106 MMOL/L (99-107); CREATININE 2.09 MG/DL (0.40-0.90); GLUCOSE 121 MG/DL (70-104); POTASSIUM 3.6 MMOL/L (3.5-5.1); SODIUM 141 MMOL/L (135-145); TOTAL CARBON DIOXIDE 25.5 MMOL/L (24-32); eGFR 23 ML/MIN
[2020-05-23 01:52] LABS: ANISOCYTOSIS 3+; PLATELET ESTIMATE NORMAL; SCHISTOCYTES FEW
[2020-05-23 02:00] VITALS: BP 123/56
[2020-05-23 06:00] VITALS: BP 129/56
--- NOTE | 2020-05-23 06:35 | NUR ---
Patient in room MED 311. I have received report from JOEL Ortiz and had the opportunity to ask questions and assume patient care.
[2020-05-23] MEDS ORDERED: docusate sod 100mg capsule PO SCH (08:00)
[2020-05-23] MEDS ORDERED: K and/or MAG REPLACEMENT MC SCH (08:00)
--- NOTE | 2020-05-23 08:44 | NUR ---
dr. JULIAN paged: PAGER ID: [phone] MESSAGE: 311: DEX - ER admit last night for CP, ?lynnette. I haven't fed her breakfast yet. nurse Noemy [id number]
[2020-05-23] MEDS ORDERED: aminophylline 250mg/10ml inj. IV PRN (10:00)
[2020-05-23] MEDS ORDERED: OXAZEpam 15mg capsule PO PRN (10:00)
[2020-05-23] MEDS ORDERED: regadenoson 0.4mg/5ml syringe IV ONE (10:00)
[2020-05-23] MEDS ORDERED: nitroGLYCERIN 0.4mg SUBLingual tab SL PRN ×2 (10:00)
[2020-05-23] MEDS ORDERED: metoprolol tartrate 1mg/ml inj IV PRN (10:00)
[2020-05-23] MEDS ORDERED: clopidogrel 75mg tablet PO SCH (10:51)
[2020-05-23] MEDS ORDERED: aspirin 81mg tab.chew PO SCH (10:51)
[2020-05-23] MEDS ORDERED: ezetimibe 10mg tablet PO SCH (10:51)
[2020-05-23] MEDS ORDERED: carVEDilol 12.5mg tablet PO SCH (10:52)
[2020-05-23] MEDS ORDERED: gabapentin 300mg capsule PO SCH ×2 (10:52→21:00)
[2020-05-23] MEDS ORDERED: CITALOpram 10mg tablet PO SCH (10:52)
[2020-05-23] MEDS ORDERED: lisinopril 2.5mg tablet PO SCH (10:53)
[2020-05-23] MEDS ORDERED: ENTECAVIR 0.5 MG PO SCH (10:53)
[2020-05-23 11:00] VITALS: BP 123/51
[2020-05-23 11:09] VITALS: BP_SYST 123
--- NOTE | 2020-05-23 15:07 | NUR ---
pt. discharged from facility at 1350. pt. walked down to [facility] to met her who was picking her up. pt. signed and understood all paperwork. pt. had no new meds to call in. pt. IV was d/c intact. pt. understands to make f/u appointment with her chef kitchen manager. pt. left with all belongings.
[2020-05-24] MEDS ORDERED: levoTHYROXINE 25mcg tablet PO SCH (07:00)
== END 2020-05-23 13:50 | disposition home or self-care (01) ==
LOC: ER 18:10 → ED HOLD 20:44 → MED 3N 21:30
PROVIDERS: ADMIT Internal Medicine; ATTEND Family Medicine
DX: R07.89 Other chest pain (principal); N17.9 Acute kidney failure, unspecified; I13.10 Hypertensive heart and chronic kidney disease without heart failure, with stage 1 through stage 4 chronic kidney disease, or unspecified chronic kidney disease; N18.9 Chronic kidney disease, unspecified; E85.9 Amyloidosis, unspecified; E03.9 Hypothyroidism, unspecified; F41.9 Anxiety disorder, unspecified; F32.9 Major depressive disorder, single episode, unspecified; J45.909 Unspecified asthma, uncomplicated; I25.10 Atherosclerotic heart disease of native coronary artery without angina pectoris; K21.9 Gastro-esophageal reflux disease without esophagitis; E78.00 Pure hypercholesterolemia, unspecified; I25.2 Old myocardial infarction; M10.9 Gout, unspecified; Z85.9 Personal history of malignant neoplasm, unspecified; Z90.5 Acquired absence of kidney; Z90.710 Acquired absence of both cervix and uterus; Z79.82 Long term (current) use of aspirin; Z79.02 Long term (current) use of antithrombotics/antiplatelets; Z79.899 Other long term (current) drug therapy; Z79.52 Long term (current) use of systemic steroids; Z91.048 Other nonmedicinal substance allergy status; Z88.8 Allergy status to other drugs, medicaments and biological substances
CPT/HCPCS: 36415; 71045; 80048; 80053; 83735; 83880; 84484; 85025; 87081; 93005; 93306; 99285; G0378; 85008

== ENCOUNTER 2020-06-27 07:33 | Day surgery (SDC) | payer MEDICARE, OTHER ==
[2020-06-27] VITALS (10 sets, daily range): BP systolic 124–157; BP diastolic 49–74
[~2020-06-27] VITALS: Ht 160 cm; Wt 64.1 kg
[~2020-06-27 07:33] MED LIST changes: -ATOR40TA PO; +ENTE0.5T4 PO; -EPLE25TA4 PO; +GABA300C PO; -LENA5CAP PO
[2020-06-27] MEDS ORDERED: BACL10TA2 PO (08:22)
[2020-06-27] MEDS ORDERED: ACYC-202 PO (08:22)
[2020-06-27] MEDS ORDERED: CARSR60C PO (08:22)
[2020-06-27] MEDS ORDERED: SULF1TAB48 PO (08:27)
[2020-06-27] MEDS ORDERED: ONDA4TAB6 PO (08:27)
[2020-06-27] MEDS ORDERED: OMEP20TA23 PO (08:27)
[2020-06-27] MEDS ORDERED: LORA-269 PO (08:27)
[2020-06-27 08:53] LABS: BASOPHILS % (AUTO) 0.2 % (0-1); EOSINOPHILS % (AUTO) 0.8 % (0-6); HEMATOCRIT 35.7 % (35.0-45.0); HEMOGLOBIN 11.8 g/dl (12.0-16.0); LYMPHOCYTES # (AUTO) 1.8 X10'3 (1.1-4.8); LYMPHOCYTES % (AUTO) 30.2 % (21-51); MEAN CORPUSCULAR HEMOGLOBIN 29.3 PG (27.0-31.0); MEAN CORPUSCULAR HGB CONC 33.1 g/dL (33.0-36.5); MEAN CORPUSCULAR VOLUME 88.6 FL (78-98); MEAN PLATELET VOLUME 6.7 FL (7.4-10.4); MONOCYTES # (AUTO) 0.5 X10'3 (0-0.9); MONOCYTES % (AUTO) 8.7 % (2-12); NEUTROPHILS # (AUTO) 3.6 X10'3 (1.8-7.7); NEUTROPHILS % (AUTO) 60.1 % (42-75); PLATELET COUNT 234 X10'3 (140-440); RED BLOOD COUNT 4.03 X10'6 (4.20-5.60); RED CELL DISTRIBUTION WIDTH 18.1 % (11.5-14.5); WHITE BLOOD COUNT 6.1 X10'3 (4.5-11.0)
[2020-06-27] MEDS ORDERED: fentaNYL/PF 50MCG/1 ML 2ML syringe ONE (08:54)
[2020-06-27] MEDS ORDERED: midazolam 2 mg/2 ml injection ONE ×2 (08:55→09:36)
[2020-06-27] MEDS ORDERED: LIDOcaine 1% (10mg/ml)w/preservative injection 20ml MDV ONE (08:55)
[2020-06-27] MEDS ORDERED: iohexol 350 MG/ML 50ML vial IV ONE (08:55)
[2020-06-27] MEDS ORDERED: iohexol 350MG/ML 100ml bottle IV ONE (08:55)
[2020-06-27] MEDS ORDERED: heparin 1,000unit/ml 10ml vial 10 ML ONE (08:55)
[2020-06-27 09:10] LABS: ALBUMIN 3.8 G/DL (3.4-5.0); ANION GAP 9 (8-16); BLOOD UREA NITROGEN 41 MG/DL (7-18); BUN/CREATININE RATIO 22.5 (6.6-38.0); CALCIUM 9.4 MG/DL (8.5-10.1); CHLORIDE 108 MMOL/L (99-107); CREATININE 1.82 MG/DL (0.40-0.90); GLUCOSE 88 MG/DL (70-104); MAGNESIUM 1.8 MG/DL (1.5-2.4); SODIUM 141 MMOL/L (135-145); TOTAL CARBON DIOXIDE 24.3 MMOL/L (24-32); eGFR 27 ML/MIN
[2020-06-27] MEDS ORDERED: normal saline 1,000 ML IV SCH (09:15)
[2020-06-27] MEDS ORDERED: diphenhydrAMINE 25mg capsule PO PRN (09:15)
[2020-06-27] MEDS ORDERED: furosemide 40mg/4ml inj ONE (09:43)
[2020-06-27] MEDS ORDERED: HYDROcodone/acetaminophen 10/325mg tab PO PRN (13:15)
[2020-06-27] MEDS ORDERED: OXAZEpam 15mg capsule PO PRN (13:15)
[2020-06-27] MEDS ORDERED: furosemide 40mg/4ml inj IV ONE (13:15)
[2020-06-27] MEDS ORDERED: HYDROcodone/acetaminophen 5mg/325mg tablet PO PRN (13:15)
== END 2020-06-27 14:05 | disposition home or self-care (01) ==
LOC: SSTAY O 07:33
PROVIDERS: ATTEND Internal Medicine Cardiovascular Disease
DX: R94.39 Abnormal result of other cardiovascular function study (principal); R07.89 Other chest pain; I25.10 Atherosclerotic heart disease of native coronary artery without angina pectoris; E03.9 Hypothyroidism, unspecified; I12.9 Hypertensive chronic kidney disease with stage 1 through stage 4 chronic kidney disease, or unspecified chronic kidney disease; J45.909 Unspecified asthma, uncomplicated; K21.9 Gastro-esophageal reflux disease without esophagitis; F41.9 Anxiety disorder, unspecified; F32.9 Major depressive disorder, single episode, unspecified; N18.9 Chronic kidney disease, unspecified; Z90.710 Acquired absence of both cervix and uterus; Z90.5 Acquired absence of kidney; Z88.8 Allergy status to other drugs, medicaments and biological substances; Z79.899 Other long term (current) drug therapy; Z79.82 Long term (current) use of aspirin; Z98.890 Other specified postprocedural states; Z85.528 Personal history of other malignant neoplasm of kidney; Z79.52 Long term (current) use of systemic steroids
CPT/HCPCS: 36415; 80048; 83735; 85025; 85610; 93005; 93458; 99152; 99153; C1760; C1769; C1894; J1644; J1940; J2001; J2250; J3010; Q9967; A4620; A6258